=== PATIENT | male | born 1940 | race Caucasian/White ===

== ENCOUNTER → 2018-08-07 | Outpatient (CLI) | payer MEDICARE, OTHER ==
[2018-08-07 21:38] LABS: BF RBC 9076 /mm3; TOTAL CELL COUNT 985 /mm3
[2018-08-07 21:42] LABS: CLARITY HAZY; TOTAL VOLUME 40 ml
[2018-08-07 21:48] LABS: BF LYMPHOCYTES 88 %; BF MONOCYTES 7 %; BF POLYS 5 %; BF TISSUE 7 /100 WBC
[2018-08-08 10:11] LABS: SOURCE LEFT KNEE
[2018-08-08 16:07] LABS: BODY FLUID PROTEIN 1.7 g/dL (())
== END ==
LOC: M.LAB 16:18
PROVIDERS: Orthopaedic Surgery
DX: M25.469 Effusion, unspecified knee (principal)